=== PATIENT | male | born 1965 | race Caucasian/White ===

== ENCOUNTER → 2017-07-19 | Emergency (ER) | payer OTHER ==
[~2017-07-19] VITALS: Ht 185.4 cm; Wt 88.5 kg
[~2017-07-19] MED LIST: AIRBORNE EFFER1 EACH PO; KETO10TA2 PO; PRILOSEC OTC20 MG PO; PRILOSEC10 MG
== END | disposition home or self-care (01) ==
LOC: ER 18:18
DX: B34.9 Viral infection, unspecified (principal)

== ENCOUNTER 2018-01-01 14:42 | Emergency (ER) | payer OTHER ==
[~2018-01-01] VITALS: Ht 185.4 cm; Wt 90.7 kg
== END 2018-01-01 17:47 | disposition home or self-care (01) ==
LOC: ER 14:42
DX: E11.65 Type 2 diabetes mellitus with hyperglycemia (principal)

== ENCOUNTER 2019-10-25 11:58 | Emergency (ER) | payer OTHER ==
[~2019-10-25] VITALS: Ht 185.4 cm; Wt 90.7 kg
[2019-10-25] MEDS ORDERED: FORTAMET1000 MG (12:28)
== END 2019-10-25 14:40 | disposition home or self-care (01) ==
LOC: ER 11:58
DX: S30.0XXA Contusion of lower back and pelvis, initial encounter (principal); W10.8XXA Fall (on) (from) other stairs and steps, initial encounter; Y93.89 Activity, other specified; Y92.018 Other place in single-family (private) house as the place of occurrence of the external cause; Y99.8 Other external cause status

== ENCOUNTER → 2021-01-28 | Day surgery (SDC) | payer OTHER ==
[~2021-01-28] MED LIST changes: +FORTAMET1000 MG
== END | disposition home or self-care (01) ==
LOC: EDSTATUS 01-25 13:45 → AMB-ENDOS 08:40
PROVIDERS: ATTEND Colon & Rectal Surgery
DX: D12.3 Benign neoplasm of transverse colon (principal); K63.5 Polyp of colon; K64.1 Second degree hemorrhoids; K44.9 Diaphragmatic hernia without obstruction or gangrene; Z20.822 Contact with and (suspected) exposure to COVID-19

== ENCOUNTER 2022-11-08 07:37 | Outpatient (CLI) | payer OTHER | END 2022-11-08 07:43 | disposition home or self-care (01) | LOC: NUCLEAR 07:37 | PROVIDERS: ATTEND Internal Medicine Cardiovascular Disease | DX: I35.9 Nonrheumatic aortic valve disorder, unspecified (principal) ==

== ENCOUNTER 2023-10-15 09:38 | Outpatient (CLI) | payer OTHER | END 2023-10-15 09:39 | disposition home or self-care (01) | LOC: NUCLEAR 09:38 | PROVIDERS: ATTEND Internal Medicine Cardiovascular Disease | DX: I35.0 Nonrheumatic aortic (valve) stenosis (principal) ==